=== PATIENT | female | born 1985 | race African-American/Black ===

== ENCOUNTER 2020-08-24 08:34 | Emergency (ER) | payer MEDICAID ==
[~2020-08-24] VITALS: Ht 165.1 cm; Wt 93.0 kg
[2020-08-24 09:20] LABS: ABSOLUTE BASOPHILS 0.1 thou/uL (0.0-0.2); ABSOLUTE EOSINOPHILS 0.1 thou/uL (0.0-0.7); ABSOLUTE LYMPHOCYTES 2.4 thou/uL (0.8-5.3); ABSOLUTE MONOCYTES 0.8 thou/uL (0.0-1.2); ABSOLUTE NEUTROPHILS 4.3 thou/uL (1.6-8.1); EOSINOPHILS 1.9 %; HEMATOCRIT 28.4 % (37.0-47.0); HEMOGLOBIN 8.4 gm/dL (12.0-15.0); LYMPHOCYTES 30.9 %; MCH 18.6 pg (26.0-34.0); MCHC 29.7 g/dL (28.0-37.0); MCV 62.4 fL (80.0-100.0); MONOCYTES 10.4 %; MPV 8.2 fl. (7.2-11.1); NUCLEATED RBCS 0 /100WBC; PLATELET COUNT* 460 thou/uL (150-400); POLYS 55.8 %; RBC 4.55 mil/uL (4.20-5.00); RDW-CV 19.6 % (10.5-14.5); WBC 7.7 thou/uL (4.0-11.0)
[2020-08-24 09:22] LABS: CALCIUM 8.8 mg/dL (8.5-10.1); CREATININE 0.8 mg/dL (0.6-1.3); POTASSIUM 3.8 mmol/L (3.5-5.1)
[2020-08-24 09:33] LABS: ALBUMIN 3.5 g/dL (3.4-5.0); MAGNESIUM 2.2 mg/dL (1.8-2.4); TOTAL BILIRUBIN 0.1 mg/dL (<0.1-1.0); TOTAL PROTEIN 8.2 g/dL (6.4-8.2)
[2020-08-24] MEDS ORDERED: FLEXERIL PO (10:10)
[2020-08-24] MEDS ORDERED: HYDROCODON-ACE1 EAC7 PO (10:10)
[2020-08-24 10:15] VITALS: BP 160/108
[2020-08-24 10:31] LABS: PLATELET ESTIMATE ADEQUATE
[2020-08-24 10:32] LABS: ANISOCYTOSIS 2+; HYPOCHROMASIA 1+; MICROCYTES 3+
--- NOTE | 2020-08-25 11:04 | EKG ---
[place] [address] ELECTROCARDIOGRAM REPORT Name: JAMIE GOMES [id number] Admission: 08/24/20 Attend Phys: Discharge: 08/24/20 Date of : 87 Date of Service: 08/24/20 0840 Report #: [id number] THIS REPORT FOR: //name// [facility] ED Test Date: 2020-08-24 Test Time: 08:40:08 Pat Name: JAMIE GOMES Department: Room: Gender: F [employer]: : 1985 Requested By: Steve Saeed Order Number: [id number] MD: Ta Keita Measurements Intervals [place] Rate: 77 P: 24 [place]: 190 QRS: 25 QRSD: 82 T: 40 QT: 370 QTc: 419 Interpretive Statements Sinus rhythm Baseline wander in lead(s) I,II,aVR No previous ECG available for comparison Electronically Signed On 08-25-2020 11:03:42 CDT by Ta Keita [email or web address] <ELECTRONICALLY SIGNED> By: Ta Keita MD, [facility] 08/25/20 1103 0840 0840 Ta Keita MD, [facility] /EPI
== END 2020-08-24 10:15 | disposition home or self-care (01) ==
LOC: M.ERS 08:34 → EDBD 08:34 → M.ERS 10:15
PROVIDERS: Emergency Medicine Emergency Medical Services
DX: R07.89 Other chest pain (principal); J45.909 Unspecified asthma, uncomplicated